=== PATIENT | male | born 1995 | race Two or more races ===

== ENCOUNTER 2018-07-07 10:12 | Emergency (ER) | payer OTHER ==
[2018-07-07 10:47] LABS: #Basophils 0.1 thou/uL (0.0-0.2); #Lymphocytes 3.2 thou/uL (1.20-3.40); #Monocytes 1.3 thou/uL (0.11-0.59); #Neutrophils 8.6 thou/uL (1.40-6.50); %Basophils 0.7 % (0.0-1.0); %Eosinophils 0.3 % (0.0-10.0); %Lymphocytes 24.5 % (21.0-51.0); %Monocytes 9.8 % (0.0-10.0); %Neutrophils 64.7 % (42.0-75.0); Hemoglobin 16.5 g/dL (14.0-18.0); Mean Corpuscular HGB CONC 33.7 g/dL (32.0-36.0); Mean Corpuscular Hemoglobin 29.9 pg (27.0-31.0); Mean Corpuscular Volume 88.8 fL (78.0-98.0); Mean Platelet Volume 7.2 fL (7.4-10.4); Platelet Count 273 thou/uL (130-400); Red Blood Cell (RBC) Count 5.51 mill/uL (4.70-6.10); White Blood Cell (WBC) Count 13.2 thou/uL (4.8-10.8)
[2018-07-07 11:03] LABS: Bilirubin Negative (Negative); Blood, Urine Negative (Negative); Clarity CLOUDY (Clear); Glucose, Urine (Dipstick) Negative (Negative); Leukocyte Trace (Negative); Nitrite Negative (Negative); Protein, Urine (Dipstick) 30 mg/dL (Neg-Trace); Specific Gravity, Urine 1.026 (1.002-1.036)
[2018-07-07] MEDS ORDERED: Morphine 4 MG/ML VIAL ONE (11:09)
[2018-07-07] MEDS ORDERED: Ondansetron PF 4 MG/2 ML Vial ONE (11:09)
[2018-07-07 11:14] LABS: ALT (SGPT) 27 U/L (8-55); AST (SGOT) 34 U/L (5-34); Albumin 4.6 g/dL (3.5-5.0); Anion Gap 13 mmol/L (10-20); BUN (Urea Nitrogen) 8 mg/dL (8.9-20.6); Bilirubin, Total 1.1 mg/dL (0.2-1.2); Calc. Creatinine Clearance 0 mL/min (70-130); Calcium 9.4 mg/dL (7.8-10.44); Carbon Dioxide 27 mmol/L (22-29); Chloride 101 mmol/L (98-107); Estimated GFR-MDRD 81; Globulin 3.3 g/dL (2.4-3.5); Glucose 96 mg/dL (70-105); Lipase 17 U/L (8-78); Potassium 3.7 mmol/L (3.5-5.1); Protein, Total 7.9 g/dL (6.0-8.3); Sodium 137 mmol/L (136-145)
[2018-07-07 11:14] LABS: Bacteria/HPF Rare-Few HPF (None Seen); Hyaline Casts/LPF NONE SEEN LPF (0-3 Hyaline); RBC/HPF None Seen HPF (0-3); Squamous Epithelial 0-3 HPF (0-3)
[2018-07-07 11:20] LABS: Alkaline Phosphatase 89 U/L (40-150)
[2018-07-07] MEDS ORDERED: ISOVUE-370 76%-LOCM 1 ML ONE (11:25)
[2018-07-07] MEDS ORDERED: Iopamidol 370 76% 50 ML VIAL FS ONE (11:25)
--- NOTE | 2018-07-07 13:41 | CT ---
CT ABDOMEN WITH CONTRAST CT PELVIS WITH CONTRAST: DATE: 07/07/2018 HISTORY: Right lower quadrant abdominal pain in 23-year-old male. Rule out appendicitis. TECHNIQUE: IV injection of iodinated contrast media: Administered Oral contrast media:Not administered FINDINGS: Liver: No focal solid mass. Spleen: No splenomegaly.. Pancreas: No mass or surrounding fat stranding.. Adrenals: No mass.. Kidneys: No hydronephrosis or enhancement abnormalities.. Ureters: No dilation. Bladder: No pathology identified. Abdominal aorta: No aneurysm. Small bowel: No dilation. Colon: No adjacent fat stranding. Appendix: No dilation or adjacent fat stranding.. Free air: None. Free fluid: None. Large number of mildly enlarged mesenteric lymph nodes throughout the abdominal cavity. IMPRESSION: 1. No evidence of appendicitis. 2. Mesenteric lymphadenitis. 3. Otherwise No major pathology identified..
== END 2018-07-07 14:25 | disposition home or self-care (01) ==
LOC: ERS 10:12
DX: I88.0 Nonspecific mesenteric lymphadenitis (principal)
CPT/HCPCS: 36415; 74177; 80053; 81003; 81015; 83690; 85025; 96361; 96374; 96375; J2270; J2405; Q9966; Q9967